=== PATIENT | male | born 1990 | race Caucasian/White ===

== ENCOUNTER 2023-12-26 17:38 | Emergency (ER) | payer BC, SELFPAY ==
[2023-12-26 17:47] VITALS: BP 138/85; PULSE 112; RESP 18; TEMP 36.2; O2SAT 98; BMI 31.6
--- NOTE | 2023-12-26 17:55 | ED_ITS ---
HPI - General Adult General Time Seen by Provider: 17:56 <Bisi Garner MD - Last Filed: 12/27/23 08:04> Date Seen: 12/26/23 <Bisi Garner MD - Last Filed: 12/27/23 08:04> Chief complaint: Diarrhea <Bisi Garner MD - Last Filed: 12/27/23 08:04> Stated complaint: Abdominal pain, diarrhea <Bisi Garner MD - Last Filed: 12/27/23 08:04> Time Seen by Provider: 12/26/23 17:43 <Bisi Garner MD - Last Filed: 12/27/23 08:04> Source: patient and RN notes reviewed <Bisi Garner MD - Last Filed: 12/27/23 08:04> Mode of arrival: ambulatory <Bisi Garner MD - Last Filed: 12/27/23 08:04> Limitations: no limitations <Bisi Garner MD - Last Filed: 12/27/23 08:04> History of Present Illness HPI narrative: This 33-year-old male coming to the ER with abdominal pain and mucousy stools. Symptoms started with mucousy stools yesterday. Today's had g eneralized abdominal pain, ongoing mucousy stools. He has had ongoing nausea and has vomited bile. He has had diminished oral intake. He feels burning in his stomach like reflux. He also feels bloated. He has had no travel, his daughter was sick last week with a gastrointestinal illness. He has had no fevers with this but states he feels chilled. He states he has been diagnosed with a hiatal hernia and reflux disease, has had a prior EGD. He also states he has been diagnosed with irritable bowel disease. He is not aware of anybody with inflammatory bowel disease. Both his dad and grandfather have had diverticulitis. He feels like his reflux symptoms are worsened right now. He does take omeprazole 40 mg daily. He feels like this is all his GI symptoms all wrapped up and happening at 1 time. <Bisi Garner MD - Last Filed: 12/27/23 08:04> Related Data Home medications: Home Medications Medication Instructions Recorded Confirmed cetirizine 5 mg tablet 5 mg PO DAILY PRN 12/26/23 12/26/23 dextroamphetamine-amphetamine .ROUTE 12/26/23 omeprazole 40 mg capsule,delayed 40 mg PO DAILY 12/26/23 12/26/23 release <Bisi Garner MD - Last Filed: 12/27/23 08:04> Allergies/adverse reactions: Allergies Allergy/AdvReac Type Severity Reaction Status Date / Time cephalexin [From Keflex] Allergy Intermediate Rash Verified 12/26/23 18:43 <Bisi Garner MD - Last Filed: 12/27/23 08:04> Review of Systems Status of ROS: Reports: 6 or more systems reviewed and unremarkable except as noted in History and below <Bisi Garner MD - Last Filed: 12/27/23 08:04> [facility] Medical History: Medical History ADHD (attention deficit hyperactivity disorder) ?F90.9 - Attention-deficit hyperactivity disorder, unspecified type (ICD-10) <Bisi Garner MD - Last Filed: 12/27/23 08:04> Exam Const: Vital Signs, click to edit/add: Vital Signs - 24 hr 12/26/23 17:47 Temperature 97.1 F L Pulse Rate [Pulse Oximeter] 112 H Respiratory Rate 18 Blood Pressure [Ri ght Upper Arm] 138/85 Pulse Oximetry 98 Oxygen Delivery Me thod Room Air This 33-year-old male is lying on his side curled up, look for while but overall is alert and interactive. Face looks mildly pale but no rash. Pupils are equal round, conjugate gaze, sclera clear. Lips appear dry. Neck is supple. Lungs are clear, good air entry, no wheezing or crackles, no tachypnea. CV slightly fast but regular, no murmur. Abdomen is soft, nondistended, bowel sounds are present. He really has no tenderness anywhere, no rebound or guarding, no organomegaly. Skin visualized without rash. <Bisi Garner MD - Last Filed: 12/27/23 08:04> Vital Signs, click to edit/add: Vital Signs - 24 hr 12/26/23 17:47 Temperature 97.1 F L Pulse Rate [Pulse Oximeter] 112 H Respiratory Rate 18 Blood Pressure [Ri ght Upper Arm] 138/85 Pulse Oximetry 98 Oxygen Delivery Me thod Room Air <Wolfgang Telles MD - Last Filed: 12/27/23 01:49> Documenting provider has reviewed patient's vital signs: yes <Bisi Garner MD - Last Filed: 12/27/23 08:04> Course Course ED Course: This 33-year-old male is presenting with abdominal pain, mucousy stools. We did discuss getting CT imaging, this will help us elucidate any concerning intra-abdominal pathology. This certainly could be a viral gastroenteritis, possible bacterial colitis/enteritis less likely. Inflammatory bowel disease will be considered. He will have a full complement of labs. He states he does not need anything for abdominal pain right now. He would appreciate something for nausea. Will initiate a L of IV fluids and 4 mg IV Zofran while we await our testing. <Bisi Garner MD - Last Filed: 12/27/23 08:04> Reevaluation(s) Time of Reevaluation #1: 19:49 <Bisi Garner MD - Last Filed: 12/27/23 08:04> Reevaluation #1: Reviewed with patient that we are awaiting CT to be read by radiologist. He was initially feeling better but nausea starting to come back. We will give him a second liter of fluids and subsequent dose of 4mg IV zofran. Reviewed that it is possible that this is a gastroenteritis but we will see based on CT results. Labs are reassuring. <Bisi Garner MD - Last Filed: 12/27/23 08:04> Reevaluation #2: Patient signed out to Dr. Telles at 8:00 p.m.-shift change. This patient presented with abdominal cramping (not requiring pain meds, nausea and vomiting, and mucousy diarrhea. Laboratory workup obtained by Dr. Montejo was reassuring. CT scan abdomen/pelvis had been ordered. Awaiting results. Dr. Telles will follow-up on the CT report from Radiology and recheck the patient's symptoms. If CT reassuring and symptoms better patient can likely discharge home. His daughter did have a presumed viral gastroenteritis about a week ago so it is possible the patient's symptoms could be infectious in nature. CT scan results came back FINDINGS: Clear included lung bases. Mild hepatic fatty infiltration. Normal-appearing spleen, pancreas, gallbladder, adrenal glands, and kidneys. The stomach is filled with fluid. There are several slightly distended fluid-filled small bowel loops which can be seen in gastroenteritis. No obstruction or ileus. No ascites. Normal appendix. No diverticulitis. Normal caliber abdominal aorta and iliac arteries. Normal inferior vena cava. Slight thoracolumbar curve may be more positional than real. No acute fracture. IMPRESSION: 1. Several mildly distended fluid-filled small bowel loops which can be seen in gastroenteritis. 2. No bowel obstruction and ileus. No evidence for appendicitis or diverticulitis. 3. Mild hepatic fatty infiltration. Medical decision making The patient's symptoms and exam could be consistent with a viral GI infection. Her daughter was sick last week with similar symptoms, but not as severe as him. There is no high fever, severe pain, bilious or bloody emesis, blood in the stool, severe abdominal pain, or other concerning signs for a bacterial infection. No recent travel or high risk exposure for baceraial pathogen. No recent antibiotics or risk factors for C. diff. I don't see any evidence for appendicitis, bowel obstruction, abscess, bowel perforation, or other surgical emergency. Labs show no concerning electrolyte disturbance or renal failure. After meds given the patient is feeling better. At this point, the patient is non-septic appearing and well hydrated.I think the patient can be managed as an outpatient. We have discussed oral rehydration strategies. They understand and can perform the needed interventions at home. I have provided a prescription for antiemetics to facilitate oral hydration (Zofran ODT.). Also discussed Imodium to use p.r.n. for diarrhea. We have discussed the signs and symptoms of worsening dehydration. They understand the need for immediate reevaluation if any of these symptoms occur. They are also directed to obtain close outpatient follow up within 2-3 days. <Bisi Garner MD - Last Filed: 12/27/23 08:04> Patient signed out to Dr. Telles at 8:00 p.m.-shift change. This patient presented with abdominal cramping (not requiring pain meds, nausea and vomiting, and mucousy diarrhea. Laboratory workup obtained by Dr. Reyna daugherty was reassuring. CT scan abdomen/pelvis had been ordered. Awaiting results. Dr. Telles will follow-up on the CT report from Radiology and recheck the patient's symptoms. If CT reassuring and symptoms better patient can likely discharge home. His daughter did have a presumed viral gastroenteritis about a week ago so it is possible the patient's symptoms could be infectious in nature. CT scan results came back FINDINGS: Clear included lung bases. Mild hepatic fatty infiltration. Normal-appearing spleen, pancreas, gallbladder, adrenal glands, and kidneys. The stomach is filled with fluid. There are several slightly distended fluid-filled small bowel loops which can be seen in gastroenteritis. No obstruction or ileus. No ascites. Normal appendix. No diverticulitis. Normal caliber abdominal aorta and iliac arteries. Normal inferior vena cava. Slight thoracolumbar curve may be more positional than real. No acute fracture. IMPRESSION: 1. Several mildly distended fluid-filled small bowel loops which can be seen in gastroenteritis. 2. No bowel obstruction and ileus. No evidence for appendicitis or diverticulitis. 3. Mild hepatic fatty infiltration. Medical decision making The patient's symptoms and exam could be consistent with a viral GI infection. Her daughter was sick last week with similar symptoms, but not as severe as him. There is no high fever, severe pain, bilious or bloody emesis, blood in the stool, severe abdominal pain, or other concerning signs for a bacterial infection. No recent travel or high risk exposure for baceraial pathogen. No recent antibiotics or risk factors for C. diff. I don't see any evidence for appendicitis, bowel obstruction, abscess, bowel perforation, or other surgical emergency. Labs show no concerning electrolyte disturbance or renal failure. After meds given the patient is feeling better. At this point, the patient is non-septic appearing and well hydrated.I think the patient can be managed as an outpatient. We have discussed oral rehydration strategies. They understand and can perform the needed interventions at home. I have provided a prescription for antiemetics to facilitate oral hydration (Zofran ODT.). Also discussed Imodium to use p.r.n. for diarrhea. We have discussed the signs and symptoms of worsening dehydration. They understand the need for immediate reevaluation if any of these symptoms occur. They are also directed to obtain close outpatient follow up within 2-3 days. <Wolfgang Telles MD - Last Filed: 12/27/23 01:49> Vital Signs Vital signs: Initial Vital Signs Temperature 97.1 F L 12/26/23 17:47 Temperature Source Temporal Artery Scan 12/26/23 17:47 Pulse Rate 112 H 12/26/23 17:47 Respiratory Rate 18 12/26/23 17:47 Blood Pressure 138/85 12/26/23 17:47 Blood Pressure Mean 102 12/26/23 17:47 Pulse Oximetry 98 12/26/23 17:47 Oxygen Delivery Method Room Air 12/26/23 17:47 Vital Signs Temperature 97.1 F L 12/26/23 17:47 Pulse Rate 112 H 12/26/23 17:47 Respiratory Rate 18 12/26/23 17:47 Blood Pressure 138/85 12/26/23 17:47 Pulse Oximetry 98 12/26/23 17:47 Oxygen Delivery Method Room Air 12/26/23 17:47 Temperature 97.1 F L 12/26/23 17:47 Pulse Rate 112 H 12/26/23 17:47 Respiratory Rate 18 12/26/23 17:47 Blood Pressure 138/85 12/26/23 17:47 Pulse Oximetry 98 12/26/23 17:47 Oxygen Delivery Method Room Air 12/26/23 17:47 <Bisi Garner MD - Last Filed: 12/27/23 08:04> Initial Vital Signs Temperature 97.1 F L 12/26/23 17:47 Temperature Source Temporal Artery Scan 12/26/23 17:47 Pulse Rate 112 H 12/26/23 17:47 Respiratory Rate 18 12/26/23 17:47 Blood Pressure 138/85 12/26/23 17:47 Blood Pressure Mean 102 12/26/23 17:47 Pulse Oximetry 98 12/26/23 17:47 Oxygen Delivery Method Room Air 12/26/23 17:47 Vital Signs Temperature 97.1 F L 12/26/23 17:47 Pulse Rate 112 H 12/26/23 17:47 Respiratory Rate 18 12/26/23 17:47 Blood Pressure 138/85 12/26/23 17:47 Pulse Oximetry 98 12/26/23 17:47 Oxygen Delivery Method Room Air 12/26/23 17:47 Temperature 97.1 F L 12/26/23 17:47 Pulse Rate 112 H 12/26/23 17:47 Respiratory Rate 18 12/26/23 17:47 Blood Pressure 138/85 12/26/23 17:47 Pulse Oximetry 98 12/26/23 17:47 Oxygen Delivery Method Room Air 12/26/23 17:47 <Wolfgang Telles MD - Last Filed: 12/27/23 01:49> Medications Administered Medications: Discontinued Medications Generic Name Dose Route Start Last Admin Trade Name Freq PRN Reason Stop Dose Admin Sodium Chloride 1,000 mls @ 1,000 mls/hr 12/26/23 18:09 12/26/23 19:29 0.9 % Sodium Chloride 1000 Ml IV 12/26/23 19:08 Infused .Q1H AVNI Infusion Sodium Chloride 1,000 mls @ 1,000 mls/hr 12/26/23 19:50 12/26/23 21:04 0.9 % Sodium Chloride 1000 Ml IV 12/26/23 20:49 Infused .Q1H AVNI Infusion Ondansetron HCl 4 mg 12/26/23 18:08 12/26/23 18:30 Ondansetron 2 Mg/Ml Inj IVP 12/26/23 18:09 4 mg ONCE ONE Administration Ondansetron HCl 4 mg 12/26/23 19:50 12/26/23 19:57 Ondansetron 2 Mg/Ml Inj IVP 12/26/23 19:51 4 mg ONCE ONE Administration <Bisi Garner MD - Last Filed: 12/27/23 08:04> Discontinued Medications Generic Name Dose Route Start Last Admin Trade Name Freq PRN Reason Stop Dose Admin Sodium Chloride 1,000 mls @ 1,000 mls/hr 12/26/23 18:09 12/26/23 19:29 0.9 % Sodium Chloride 1000 Ml IV 12/26/23 19:08 Infused .Q1H AVNI Infusion Sodium Chloride 1,000 mls @ 1,000 mls/hr 12/26/23 19:50 12/26/23 21:04 0.9 % Sodium Chloride 1000 Ml IV 12/26/23 20:49 Infused .Q1H AVNI Infusion Ondansetron HCl 4 mg 12/26/23 18:08 12/26/23 18:30 Ondansetron 2 Mg/Ml Inj IVP 12/26/23 18:09 4 mg ONCE ONE Administration Ondansetron HCl 4 mg 12/26/23 19:50 12/26/23 19:57 Ondansetron 2 Mg/Ml Inj IVP 12/26/23 19:51 4 mg ONCE ONE Administration <Wolfgang Telles MD - Last Filed: 12/27/23 01:49> Medical Decision Making Lab Data Lab results reviewed: Yes I reviewed the patient's lab results <Bisi Garner MD - Last Filed: 12/27/23 08:04> Labs: Lab Results 12/26/23 Range/Units 18:22 WBC 9.92 (4.50-11.00) K/uL RBC 5.90 (4.30-5.90) m/uL Hgb 17.3 (13.5-17.5) gm/dL Hct 51.0 (37.0-53.0) % MCV 86 (80-100) fL MCH 29 (26-34) pg MCHC 34 (32-36) gm/dL RDW Coeff of Eve 12.4 (11.5-15.5) % Plt Count 209 (140-440) K/uL Neut % (Auto) 87.5 H (42.0-72.0) % Lymph % (Auto) 5.4 L (20-44) % Meriwether % (Auto) 5.4 (0.0-11.0) % Eos % (Auto) 1.3 (0.0-7.0) % Baso % (Auto) 0.2 (0.0-3.0) % Neut # (Auto) 8.70 H (1.7-7.0) K/uL Lymph # (Auto) 0.50 L (0.90-2.90) K/uL Meriwether # (Auto) 0.50 (0.00-0.90) K/UL Eos # (Auto) 0.13 (0.00-0.50) K/uL Baso # (Auto) 0.02 (0.00-0.30) K/uL Abs Immat Gran (auto) 0.02 (0.00-0.30) K/uL Imm/Tot Granulo (auto) 0.2 % Sodium 139 (135-149) mmol/L Potassium 4.3 (3.6-5.1) mmol/L Chloride 105 (96-114) mmol/L Carbon Dioxide 28 (20-32) mmol/L Anion Gap 6 L (7-15) mEq/L BUN 19 (5-24) mg/dL Creatinine 1.1 (0.5-1.5) mg/dL Estimated Creat Clear 118.36 Estimated GFR 91 ml/min Glucose 93 (60-115) mg/dL Lactate 0.7 (0.5-1.9) mmol/L Calcium 9.9 (8.4-10.6) mg/dL Total Bilirubin 1.4 (0.1-1.5) mg/dL Direct Bilirubin 0.1 (0.0-0.5) mg/dL AST 37 H (12-35) U/L ALT 35 (4-50) U/L Alkaline Phosphatase 46 (40-150) U/L C-Reactive Protein 0.9 (0.5-1.0) mg/dL Total Protein 8.4 H (6.0-8.3) g/dL Albumin 5.2 H (3.3-5.0) g/dL <Bisi Garner MD - Last Filed: 12/27/23 08:04> Lab Results 12/26/23 Range/Units 18:22 WBC 9.92 (4.50-11.00) K/uL RBC 5.90 (4.30-5.90) m/uL Hgb 17.3 (13.5-17.5) gm/dL Hct 51.0 (37.0-53.0) % MCV 86 (80-100) fL MCH 29 (26-34) pg MCHC 34 (32-36) gm/dL RDW Coeff of Eve 12.4 (11.5-15.5) % Plt Count 209 (140-440) K/uL Neut % (Auto) 87.5 H (42.0-72.0) % Lymph % (Auto) 5.4 L (20-44) % Meriwether % (Auto) 5.4 (0.0-11.0) % Eos % (Auto) 1.3 (0.0-7.0) % Baso % (Auto) 0.2 (0.0-3.0) % Neut # (Auto) 8.70 H (1.7-7.0) K/uL Lymph # (Auto) 0.50 L (0.90-2.90) K/uL Meriwether # (Auto) 0.50 (0.00-0.90) K/UL Eos # (Auto) 0.13 (0.00-0.50) K/uL Baso # (Auto) 0.02 (0.00-0.30) K/uL Abs Immat Gran (auto) 0.02 (0.00-0.30) K/uL Imm/Tot Granulo (auto) 0.2 % Sodium 139 (135-149) mmol/L Potassium 4.3 (3.6-5.1) mmol/L Chloride 105 (96-114) mmol/L Carbon Dioxide 28 (20-32) mmol/L Anion Gap 6 L (7-15) mEq/L BUN 19 (5-24) mg/dL Creatinine 1.1 (0.5-1.5) mg/dL Estimated Creat Clear 118.36 Estimated GFR 91 ml/min Glucose 93 (60-115) mg/dL Lactate 0.7 (0.5-1.9) mmol/L Calcium 9.9 (8.4-10.6) mg/dL Total Bilirubin 1.4 (0.1-1.5) mg/dL Direct Bilirubin 0.1 (0.0-0.5) mg/dL AST 37 H (12-35) U/L ALT 35 (4-50) U/L Alkaline Phosphatase 46 (40-150) U/L C-Reactive Protein 0.9 (0.5-1.0) mg/dL Total Protein 8.4 H (6.0-8.3) g/dL Albumin 5.2 H (3.3-5.0) g/dL <Wolfgang Telles MD - Last Filed: 12/27/23 01:49> Imaging Data CT scan - abdomen: Attestation: I have reviewed the pertinent imaging results. <Bisi Louie MD - Last Filed: 12/27/23 08:04> Radiologist's impression: Patient: RUSH LONG Facility:?[facility] Patient ID:?[id number] Site Patient ID:?[id number]. Site :?1991 Study:?CT-Abdomen/Pelvis W/ 122CC ISOVUE 370-12/26/2023 7:31:45 PM Ordering Physician:GRICELDA Final Report: INDICATION: Diarrhea. Abdominal pain. TECHNIQUE: Contrast-enhanced CT of the abdomen and pelvis. 122 cc nonionic Isovue-370 administered. FINDINGS: Clear included lung bases. Mild hepatic fatty infiltration. Normal-appearing spleen, pancreas, gallbladder, adrenal glands, and kidneys. The stomach is filled with fluid. There are several slightly distended fluid-filled small bowel loops which can be seen in gastroenteritis. No obstruction or ileus. No ascites. Normal appendix. No diverticulitis. Normal caliber abdominal aorta and iliac arteries. Normal inferior vena cava. Slight thoracolumbar curve may be more positional than real. No acute fracture. IMPRESSION: 1. Several mildly distended fluid-filled small bowel loops which can be seen in gastroenteritis. 2. No bowel obstruction and ileus. No evidence for appendicitis or diverticulitis. 3. Mild hepatic fatty infiltration. Please note that all CT scans at this facility use dose modulation, iterative reconstruction, and/or weight-based dosing when appropriate to reduce radiation dose to as low as reasonably achievable. Dictated by Joseph Melo MD @ 12/26/2023 8:12:19 PM (Electronic Signature) <Bisi Garner MD - Last Filed: 12/27/23 08:04> Discharge Plan Discharge Clinical Impression: Abdominal pain, vomiting, and diarrhea <Bisi Garner MD - Last Filed: 12/27/23 08:04> Patient Disposition: Home, Self-Care <Bisi Garner MD - Last Filed: 12/27/23 08:04> Condition: Stable <Bisi Garner MD - Last Filed: 12/27/23 08:04> Instructions: Acute Nausea and Vomiting (DC), Acute Diarrhea (ED), Abdominal Pain (ED) <Bisi Garner MD - Last Filed: 12/27/23 08:04> Additional Instructions: As we discussed, you can use Zofran if needed to help treat nausea and vomiting. You can use Imodium to treat diarrhea (2 tablets with your for next episode of diarrhea and then 1 tablet by mouth every 2 hours as needed for subsequent episodes of diarrhea-no more than 8 tablets per 24 hours) Try to drink plenty of fluids or Gatorade or other liquids to stay hydrated. If you have worsening or uncontrolled symptoms, high fever, bloody stools, or severe pain, please come back to the ER right away to be rechecked. Otherwise if his symptoms are not improving within 48 hours, come back to the ER to be rechecked. <Bisi Garner MD - Last Filed: 12/27/23 08:04> Prescriptions: No Action omeprazole 40 mg capsule,delayed release(DR/EC) 40 mg PO DAILY cetirizine 5 mg tablet 5 mg PO DAILY PRN dextroamphetamine-amphetamine [Adderall XR] .ROUTE <Bisi Garner MD - Last Filed: 12/27/23 08:04> Follow Up/Referrals: Provider,Not a Local [Primary Care Provider] - <Bisi Garner MD - Last Filed: 12/27/23 08:04> Stand Alone Forms: [employer] Info Instructions <Bisi Garner MD - Last Filed: 12/27/23 08:04>
--- NOTE | 2023-12-26 18:08 | CT_ITS ---
Patient: RUSH LONG Facility:?[facility] Patient ID:?[id number] Site Patient ID:?[id number]. Site :?1990 Study:?CT-Abdomen/Pelvis W/ 122CC ISOVUE 370-12/26/2023 7:31:45 PM Ordering Physician:GRICELDA Final Report: INDICATION: Diarrhea. Abdominal pain. TECHNIQUE: Contrast-enhanced CT of the abdomen and pelvis. 122 cc nonionic Isovue-370 administered. FINDINGS: Clear included lung bases. Mild hepatic fatty infiltration. Normal-appearing spleen, pancreas, gallbladder, adrenal glands, and kidneys. The stomach is filled with fluid. There are several slightly distended fluid-filled small bowel loops which can be seen in gastroenteritis. No obstruction or ileus. No ascites. Normal appendix. No diverticulitis. Normal caliber abdominal aorta and iliac arteries. Normal inferior vena cava. Slight thoracolumbar curve may be more positional than real. No acute fracture. IMPRESSION: 1. Several mildly distended fluid-filled small bowel loops which can be seen in gastroenteritis. 2. No bowel obstruction and ileus. No evidence for appendicitis or diverticulitis. 3. Mild hepatic fatty infiltration. Please note that all CT scans at this facility use dose modulation, iterative reconstruction, and/or weight-based dosing when appropriate to reduce radiation dose to as low as reasonably achievable. Dictated by Joseph Melo MD @ 12/26/2023 8:12:19 PM Signed by:?Joseph Melo MD @12/26/2023 8:12:19 PM (Electronic Signature)
[2023-12-26 18:29] LABS: Lactate* 0.7 mmol/L (0.5-1.9)
[2023-12-26] MEDS: ONDANSETRON 2 MG/ML inj 4 MG IVP ×2 (18:30→19:57)
[2023-12-26] MEDS: 0.9 % SODIUM CHLORIDE 1000 ml 1,000 ML IV ×2 (18:30→19:57)
[2023-12-26 18:46] LABS: Basophils Absolute Auto 0.02 K/uL (0.00-0.30); Basophils Percent Auto 0.2 % (0.0-3.0); Eosinophils Absolute Auto 0.13 K/uL (0.00-0.50); Eosinophils Percent Auto 1.3 % (0.0-7.0); Hemoglobin* 17.3 gm/dL (13.5-17.5); Immature Granulocytes Abs Auto 0.02 K/uL (0.00-0.30); Immature Granulocytes Pct Auto 0.2 %; Lymphocytes Percent Auto 5.4 % (20-44); Mean Corpuscular HGB Conc 34 gm/dL (32-36); Mean Corpuscular Hemoglobin 29 pg (26-34); Mean Corpuscular Volume 86 fL (80-100); Monocytes Percent Auto 5.4 % (0.0-11.0); Neutrophils Percent Auto 87.5 % (42.0-72.0); Platelet Count* 209 K/uL (140-440); RDW Coefficient of Variation % 12.4 % (11.5-15.5); White Blood Count* 9.92 K/uL (4.50-11.00)
[2023-12-26 18:50] LABS: Slide Review Reflex No
[2023-12-26 18:55] LABS: Albumin* 5.2 g/dL (3.3-5.0); Chloride* 105 mmol/L (96-114); Potassium* 4.3 mmol/L (3.6-5.1); Sodium* 139 mmol/L (135-149)
[2023-12-26 18:57] LABS: Creatinine* 1.1 mg/dL (0.5-1.5); Est. Creatinine Clearance* 118.36; Estimated Glomerular Filt Rate 91 ml/min
[2023-12-26 18:58] LABS: Alanine Aminotransferase* 35 U/L (4-50); Alkaline Phosphatase* 46 U/L (40-150); Anion Gap 6 mEq/L (7-15); Aspartate Amino Transferase* 37 U/L (12-35); Bilirubin Direct* 0.1 mg/dL (0.0-0.5); Bilirubin Total* 1.4 mg/dL (0.1-1.5); Blood Urea Nitrogen* 19 mg/dL (5-24); Carbon Dioxide* 28 mmol/L (20-32); Glucose* 93 mg/dL (60-115); Total Protein* 8.4 g/dL (6.0-8.3)
[2023-12-26 18:59] LABS: Calcium* 9.9 mg/dL (8.4-10.6)
[2023-12-26 19:01] LABS: C Reactive Protein* 0.9 mg/dL (0.5-1.0)
== END 2023-12-26 21:42 | disposition home or self-care (01) ==
PROVIDERS: Family Medicine; Emergency Provider Emergency Medicine
DX: R10.9 Unspecified abdominal pain (principal); R11.2 Nausea with vomiting, unspecified; R19.7 Diarrhea, unspecified
CPT/HCPCS: 36415; 74177; 80053; 82248; 83605; 85025; 86140; 96374; 96376; 99284; J2405; J7030; Q9967